=== PATIENT | male | born 1950 | race Caucasian/White ===

== ENCOUNTER → 2016-04-20 | Outpatient (CLI) | payer MEDICARE, OTHER ==
--- NOTE | 2016-04-20 08:18 | RAD ---
EXAM DESCRIPTION: XR SHOULDER 2 OR MORE VIEWS CLINICAL HISTORY: SHOULDER PAIN COMPARISON: None. IMPRESSION: Two views of the left shoulder show no evidence of acute fracture, focal bone destruction, or joint dislocation. There is severe narrowing of the glenohumeral joint with sclerotic changes at the articular surface. Circumferential osteophyte of the glenoid is seen with moderate inferior medial osteophyte of the humeral head. These findings are consistent with severe advanced glenohumeral joint osteoarthritic changes. There also appears to be some elevation of the humeral head raising suspicion for chronic rotator cuff tear. Mild osteoarthritic changes of the left acromioclavicular joint are seen. Electronically signed by: Tavo Shane MD 04/20/2016 08:17
== END ==
LOC: RAD 07:51
PROVIDERS: ATTEND Orthopaedic Surgery
DX: M19.012 Primary osteoarthritis, left shoulder (principal)

== ENCOUNTER → 2016-08-04 | Outpatient (CLI) | payer MEDICARE, OTHER ==
--- NOTE | 2016-08-04 17:06 | MRI ---
EXAM DESCRIPTION: Lumbar Spine w/o Contrast CLINICAL HISTORY: 66 years,Male,STENOSIS COMPARISON: None TECHNIQUE: MRI before multiple sequences of the lumbar spine. FINDINGS: The vertebral bodies demonstrate hemangiomas and L3 measuring 1.5 cm in size. And multiple smaller hemangiomas in almost all vertebral bodies. And Modic type I endplate changes seen at T12-L1.. Spinal cord normal signal and morphology. Tip of the conus is at L1. Surrounding soft tissues unremarkable. L5-S1: Disk height is moderately loss in the left aspect. There is minimal annular disc bulge. The facettes moderate bilateral hypertrophy. There is no spinal canal stenosis. There is severe right mild left neural foraminal stenosis. L4-5: Disk height is moderate to severe loss at disc height worse on the right. There is moderate annular disc bulge but a more focal protrusion of 6 mm on the right paracentral aspect.. The facettes severely hypertrophic bilaterally and subluxed on the right. There is thickening 11 flavum which is moderate. And moderate spinal canal stenosis worse on the right lateral recess impinging upon the transversing L5 nerve root. There is markedly severe left and right neural foraminal stenosis. L3-4: Disk height is moderately loss disc height worse on the right. There is moderate annular disc bulge. The facettes severely hypertrophic with severe thickening of the ligamentum flavum over 6 mm thickness. There is severe spinal canal stenosis with only 3 mm AP central distance. There is markedly severe right and severe left foraminal stenosis. L2-3: Disk height is moderate loss of disc height. There is moderate annular disc bulge up to 6 mm in thickness. The facettes moderate to severe facets facet hypertrophy with mild thickening of the ligamentum flavum . There is mild right lateral recess stenosis impinging upon the transversing L3 nerve root. There is severe right moderate left neural foraminal stenosis. L1-2: Disk height is moderate loss disc height worse on the left. There is mild to moderate annular disc bulge. The facettes moderate to severe facet hypertrophy. There is no spinal canal stenosis. There is moderate left and right neural foraminal stenosis. IMPRESSION: All levels demonstrate neural foraminal stenosis which is worse and severe on the right at L to three and L3-4 and on the left at L3-4. This due to loss disc height disc bulges and facet arthropathy which is mostly severe facet disease. Multiple levels of spinal canal stenosis at L4-5, severe at L3-4 due to in addition to severe thickening of the ligamentum flavum and mild on the right at L2-3. There is dextro upper lumbar spine scoliosis distal lower due to uneven loss of disc height. Electronically signed by: Vamsi Singleton MD 08/04/2016 5:06 PM CDT
== END ==
LOC: MRI 06:38
PROVIDERS: ATTEND Family Medicine
DX: M48.06 Spinal stenosis, lumbar region (principal)

== ENCOUNTER → 2016-09-07 | Outpatient (CLI) | payer MEDICARE, OTHER | END | disposition home or self-care (01) | LOC: GMAJ 10:15 | PROVIDERS: ATTEND Family Medicine | DX: Z12.5 Encounter for screening for malignant neoplasm of prostate (principal) ==

== ENCOUNTER → 2016-10-27 | Outpatient (CLI) | payer MEDICARE, OTHER ==
--- NOTE | 2016-10-27 14:06 | MAM ---
EXAM DESCRIPTION: 3D Diagnostic, Bilateral CLINICAL HISTORY: 66 yearsMaleGYNECOMASTIA, NEOPLASM OF UNCERTAIN BEHAVIOR LEFT BREAST. Lump on left breast. Tender.. COMPARISON: Baseline study. No prior reports available. TECHNIQUE: Bilateral CC and MLO projection full-field images, 3-D tomosynthesis CC only, digital mammographic technique. Also bilateral synthesized CC/ MLO full-field images. CAD not utilized. Marker placed on palpable left breast lesion. FINDINGS: The breast parenchymal density pattern is: Almost entirely fatty. No skin thickening or nipple retraction focal asymmetry in the anterior third of the left breast abutting the posterior nipple line measuring approximately 1.3 cm in diameter. Focal asymmetry in the similar location on the right breast, smaller region. No associated microcalcifications. No focal, stellate mass or density, , and no suspicious microcalcifications bilaterally. ULTRASOUND: Scanning bilateral retroareolar breast tissue. Oval-shaped hypoechoic tissue in the retroareolar left breast with macrolobulation. 1.4 x 1.3 cm. Parallel orientation. Mixed posterior features. Minimal peripheral vascularity. Similar tissue less well-defined retroareolar right breast approximately 8 mm greatest diameter. Parallel orientation and mixed posterior acoustic features. Bilateral findings consistent with gynecomastia. IMPRESSION: BI-RADS CATEGORY: 3 - PROBABLY BENIGN FINDING - Short Interval Follow-Up Suggested, left breast FOLLOW-UP: Short-interval (6-month) follow-up mammography and consider surveillance ultrasound. Written communication explaining the results and follow-up will be mailed to the patient and referring care provider. Electronically signed by: Juanjose Ortega MD 10/27/2016 2:04 PM CDT Workstation: [id number]
--- NOTE | 2016-10-27 14:08 | US ---
EXAM DESCRIPTION: Breast,Left CLINICAL HISTORY: 66 yearsMaleGYNECOMASTIA COMPARISON: Diagnostic digital mammogram of the bilateral breasts on this visit. TECHNIQUE: Transcutaneous scanning of the bilateral retroareolar breast utilizing two-dimensional and Doppler modes. Scanning performed by the basket maker . FINDINGS: Scanning bilateral retroareolar breast tissue. Oval-shaped hypoechoic tissue in the retroareolar left breast with macrolobulation. 1.4 x 1.3 cm. Parallel orientation. Mixed posterior features. Minimal peripheral vascularity. Similar tissue less well-defined retroareolar right breast approximately 8 mm greatest diameter. Parallel orientation and mixed posterior acoustic features. Bilateral findings consistent with gynecomastia. IMPRESSION: BI-RADS Category 3: Probably benign findings. These refer to bilateral digital 3-D tomosynthesis diagnostic mammographic examination on this visit. The findings and the follow-up plan were reviewed with the patient after the examination. Electronically signed by: Juanjose Ortega MD 10/27/2016 2:06 PM CDT Workstation: [id number]
== END ==
LOC: MAMMO 12:33
PROVIDERS: ATTEND Family Medicine
DX: N63 Unspecified lump in breast (principal)
CPT/HCPCS: 76641; G0279

== ENCOUNTER → 2016-12-01 | Outpatient (CLI) | payer MEDICARE, OTHER ==
--- NOTE | 2016-12-01 08:57 | OP ---
DATE OF PROCEDURE: 12/01/16 PREOPERATIVE DIAGNOSIS: 1. Tender left breast mass. POSTOPERATIVE DIAGNOSIS: 1. Tender left breast mass. PROCEDURE: 1. Sonographically needle core biopsy, left breast mass. SURGEON: Riaz Eddy MD. ANESTHESIA: Local infiltration of 1% lidocaine. INDICATION: The patient is a 66-year-old male who presented to his primary care physician with a tender left breast mass. Ultrasound and mammography are consistent with gynecomastia. The patient is in preparation of significant back surgery and he is concerned even though he has been assured that this is most likely gynecomastia. The patient wishes to proceed with a biopsy. After the risks, benefits and alternatives were discussed, he was brought to the Ultrasound Suite today for a sonographically guided needle core biopsy. FINDINGS: The ultrasound device revealed the biopsy needle within the lesion and 4 cores were taken. Pathology is pending. PROCEDURE: The patient was brought to the Ultrasound Suite and placed in the supine position. The breast was inspected and the lesion was identified. The lateral left breast was prepped with Betadine and draped. Local infiltration of anesthesia was obtained with 1% lidocaine. A 25-gauge needle was introduced to the lesion. A stab wound was then made with a 15 blade and the biopsy needle was introduced under ultrasound guidance. Four passes were taken with one of the passes at 90 degrees. The ultrasound also reveals the within the lesion. The patient tolerated the procedure well. Hemostasis was obtained with pressure and a single suture of 4-0 Nylon. A sterile pressure dressing was obtained. Estimated blood loss was 10 mL. The patient is discharged home with followup for next Tuesday. The specimen was sent for pathologic evaluation. #[id number] [facility]
--- NOTE | 2016-12-02 12:49 | US ---
EXAM DESCRIPTION: Biopsy/Needle Guidance CLINICAL HISTORY: 66 yearsMaleLEFT BREAST MASS COMPARISON: Diagnostic ultrasound of the left breast on 10/27/2016. TECHNIQUE: The procedure was performed by Dr. Eddy. Repeat ultrasound localized the lesion at the retroareolar position of the left breast. Sterile preparation. Sterile ultrasound guidance. FINDINGS: Orthogonal images demonstrate the echogenic needle within the hypoechoic region in the retroareolar left breast. IMPRESSION: Successful, ultrasound-guided fine-needle core biopsy of the retroareolar mass in the left breast. Pathology examination at remote facility, results pending. Electronically signed by: Juanjose Ortega MD 12/02/2016 12:48 PM CDT Workstation: [id number]
== END | disposition home or self-care (01) ==
LOC: US 07:41
PROVIDERS: ATTEND Surgery
PROC: 0HBU3ZX Excision of Left Breast, Percutaneous Approach, Diagnostic (ICD-10-PCS; principal; 2016-12-01)
PROC: BH41ZZZ Ultrasonography of Left Breast (ICD-10-PCS; 2016-12-01)
DX: N63 Unspecified lump in breast (principal)

== ENCOUNTER → 2017-05-04 | Outpatient (CLI) | payer MEDICARE, OTHER ==
--- NOTE | 2017-05-04 16:26 | MAM ---
EXAM DESCRIPTION: 3D Diagnostic, Left: Digital Mammography CLINICAL HISTORY: 66 yearsMale6 month follow up . Patient states he no longer feels a mass behind the left nipple.. COMPARISON: 3-D diagnostic bilateral mammography 10/27/2016. Targeted left breast ultrasound on the same visit. Targeted left breast ultrasound following this examination. Reports from prior examinations also reviewed. TECHNIQUE: Left breast CC LM MLO projection full-field images, 3-D tomosynthesis digital mammographic technique. Also left breast synthesized CC MLO LM full-field images. CAD not utilized. FINDINGS: The breast parenchymal density pattern is: Almost entirely fatty. No skin thickening or nipple retraction focal asymmetry in the retroareolar left nipple compared to the right. Denser than the surrounding breast tissue. Not palpable. No mass effect or abnormal calcifications. This can be related to prior biopsy. ULTRASOUND: Scanning behind the left nipple. Hypoechoic ill-defined tissue with no mass border. No discrete mass or cyst. No skin changes. No parenchymal edema or calcification. Normal Doppler signature. Consistent with gynecomastia. IMPRESSION: BI-RADS CATEGORY: 2 - BENIGN FINDINGS. FOLLOW UP: Diagnostic digital screening, as needed. The FINDINGS and the follow-up plan were reviewed in person with the patient after the examination. Written communication explaining the IMPRESSION and follow-up will be mailed to the patient and referring care provider. Electronically signed by: Juanjose Ortega MD 05/04/2017 4:25 PM [employer]
--- NOTE | 2017-05-04 16:28 | US ---
EXAM DESCRIPTION: Breast,Left: Ultrasound CLINICAL HISTORY: 66 yearsMale6 MONTH FOLLOW UP NEG BX. Patient no longer feels a mass behind the left nipple. COMPARISON: Digital 3-D tomosynthesis diagnostic left breast same visit. TECHNIQUE: Transcutaneous scanning of the retroareolar left breast utilizing two-dimensional and Doppler modes. Scanning performed by the systems auditor and Dr. Ortega. FINDINGS: Scanning behind the left nipple. Hypoechoic ill-defined tissue with no mass border. No discrete mass or cyst. No skin changes. No parenchymal edema or calcification. Normal Doppler signature. Consistent with gynecomastia. IMPRESSION: 1. Bi-Rads Category 2: Benign. 2. Please refer to digital diagnostic 3-D tomosynthesis examination the left breast today and report. The FINDINGS and the follow-up plan were reviewed in person with the patient after the examination. Written communication explaining the IMPRESSION and follow-up will be mailed to the patient and referring care provider. Electronically signed by: Juanjose Ortega MD 05/04/2017 4:27 PM COMPOTYPE OPERATOR
== END ==
LOC: MAMMO 12:48
PROVIDERS: ATTEND Surgery
DX: N62 Hypertrophy of breast (principal)
CPT/HCPCS: 76641; 77065; G0279

== ENCOUNTER → 2017-07-05 | Outpatient (CLI) | payer MEDICARE, OTHER | LOC: GMAJ 14:35 | PROVIDERS: ATTEND Family Medicine | DX: N40.0 Benign prostatic hyperplasia without lower urinary tract symptoms (principal) ==

== ENCOUNTER 2017-10-24 05:30 | Day surgery (SDC) | payer MEDICARE, OTHER ==
[2017-10-24] MEDS ORDERED: TROP 1%/CYCLOPEN 1%/PHENYL 2% DROPS ONE (05:54)
[2017-10-24] MEDS ORDERED: PROPARACAINE 0.5% OPHTH SOL 15 ML BTTL ONE (05:54)
[2017-10-24] MEDS ORDERED: MIDAZOLAM INJ 2 MG/2 ML VIAL ONE ×2 (07:11→09:45)
[2017-10-24] MEDS ORDERED: PROPARACAINE 0.5% OPHTH SOL 15 ML BTTL LEFT_EYE ONE (09:40)
[2017-10-24] MEDS ORDERED: DEXAMETHASONE 0.1% OPHTH SOL 1 DROP LEFT_EYE ONE ×2 (09:46→10:03)
[2017-10-24] MEDS ORDERED: LIDOCAINE 1% PF 2 ML AMP INJ ONE ×2 (09:46→09:54)
[2017-10-24] MEDS ORDERED: TOBRAMYCIN SULF 0.3 % OPHT SOL 1 DROP LEFT_EYE ONE ×2 (09:47→10:03)
[2017-10-24] MEDS ORDERED: BRIMONIDINE 0.2% OPHTH DROPS LEFT_EYE ONE ×2 (09:47→10:03)
== END 2017-10-24 10:36 | disposition home or self-care (01) ==
LOC: AMB 05:30
PROVIDERS: ATTEND Ophthalmology
DX: H25.12 Age-related nuclear cataract, left eye (principal); I10 Essential (primary) hypertension; K21.9 Gastro-esophageal reflux disease without esophagitis; E66.9 Obesity, unspecified; Z87.891 Personal history of nicotine dependence; Z88.8 Allergy status to other drugs, medicaments and biological substances; Z79.899 Other long term (current) drug therapy
CPT/HCPCS: 00142; 66984; J2250

== ENCOUNTER 2017-11-07 06:02 | Day surgery (SDC) | payer MEDICARE, OTHER ==
[~2017-11-07 06:02] MED LIST: PROPARACAINE 0.5% OPHTH SOL 15 ML BTTL ONE; TROP 1%/CYCLOPEN 1%/PHENYL 2% DROPS ONE
[2017-11-07] MEDS ORDERED: MIDAZOLAM INJ 2 MG/2 ML VIAL ONE (07:05)
[2017-11-07] MEDS ORDERED: LIDOCAINE 1% MPF 5 ML VIAL INJ ONE (07:44)
[2017-11-07] MEDS ORDERED: DEXAMETHASONE 0.1% OPHTH SOL 1 DROP RIGHT_EYE ONE ×2 (07:50→07:59)
[2017-11-07] MEDS ORDERED: TOBRAMYCIN SULF 0.3 % OPHT SOL 1 DROP RIGHT_EYE ONE ×2 (07:50→07:59)
[2017-11-07] MEDS ORDERED: BRIMONIDINE 0.2% OPHTH DROPS RIGHT_EYE ONE ×2 (07:51→07:59)
== END 2017-11-07 08:32 | disposition home or self-care (01) ==
LOC: AMB 06:02
PROVIDERS: ATTEND Ophthalmology
DX: H25.11 Age-related nuclear cataract, right eye (principal); I10 Essential (primary) hypertension; K21.9 Gastro-esophageal reflux disease without esophagitis; Z88.8 Allergy status to other drugs, medicaments and biological substances; Z79.899 Other long term (current) drug therapy
CPT/HCPCS: 66984; J2250

== ENCOUNTER → 2017-12-28 | Outpatient (CLI) | payer MEDICARE, OTHER ==
--- NOTE | 2017-12-28 10:57 | MRI ---
MRI left hand without contrast INDICATION: Fourth and fifth metacarpal pain x3 months uncertain injury swelling TECHNIQUE: Noncontrast MR imaging left hand FINDINGS: There is a marker indicating the area of symptomatology over the fifth metacarpal. There is a small metallic artifact at the skin or just under the skin in the palm axial series 301 image 34 correlate with prior injury in this area. There is diffuse edema/soft tissue swelling in the area of symptoms at the fifth MCP joint. There is diffuse inflammation surrounding this joint with mild marrow edema and degenerative change. There is also evidence of mild synovitis. There is question of mineralization within the synovium correlate with radiographs. This is a nonspecific intra-articular and periarticular inflammation. This may be traumatic or an inflammatory arthritic process. Rheumatologic assessment and labs would be useful. No advanced bone destruction this time. No disruption of the extensor or flexor mechanism There is scattered osteoarthritic change involving the second CMC joint and second MCP joint. There is cystic change or chondroid lesion in the neck of the distal second metacarpal nonaggressive in appearance. There is also surgical change and arthrosis of the basal joint of the thumb partially visualized. There is mild extensor tenosynovitis across the fifth MCP joint in the area of symptoms and inflammation. IMPRESSION: Nonspecific intra-articular and periarticular inflammation fifth MCP joint and extensor compartment see above discussion without advanced bone destruction fracture or dislocation Degenerative/arthritic change basal joint of thumb with surgical changes Similar changes second CMC joint and second MCP joint Cystic or chondroid lesion distal second metacarpal Electronically signed by: Mu Aranda MD 12/28/2017 10:56 AM CDT
== END ==
LOC: MRI 07:03
PROVIDERS: ATTEND Family Medicine
DX: M19.042 Primary osteoarthritis, left hand (principal); M84.84 Other disorders of continuity of bone, hand; M79.642 Pain in left hand

== ENCOUNTER → 2018-01-30 | Outpatient (CLI) | payer MEDICARE, OTHER | LOC: GMAJ 12:00 | PROVIDERS: ATTEND Family Medicine | DX: N40.1 Benign prostatic hyperplasia with lower urinary tract symptoms (principal) ==

== ENCOUNTER → 2018-03-14 | Outpatient (CLI) | payer MEDICARE, OTHER ==
--- NOTE | 2018-03-14 15:51 | MRI ---
EXAM DESCRIPTION: Cervical Spine: MRI. CLINICAL HISTORY: 67 years Male M54.12 COMPARISON: None. TECHNIQUE: Multiplanar, high-field MRI, multiple sequences, non-contrast Cervical spine. FINDINGS: C2-3: Uncinate process on the left. Arthrosis with facet with moderate neural foraminal narrowing. Facet osteophyte encroaches on the left lateral canal. Right foramen and remainder of canal are patent. C3-4: Disc desiccation and 2 mm grade 1 anterolisthesis. Minimal hypertrophy of the posterior flavum ligaments. 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 Bilateral uncinate spurs. Mild right neural foraminal narrowing and left neural foraminal stenosis. Mild canal narrowing. C4-5: Mild disc desiccation with anterior bulging. 2 mm grade 1 anterolisthesis. Posterior bilateral flavum ligament hypertrophy with borderline canal stenosis. Bilateral uncinate spurs. Bilateral facet arthrosis more on the left. Bilateral mild to moderate neural foraminal narrowing. C5-6: Significant disc space loss. Anterior bulging and endplate spurs. Posterior disc osteophyte broad-based bulge abutting the thecal sac. Bilateral uncinate spurs. Left mild facet arthrosis. Moderate bilateral neural foraminal narrowing. C6-7: Disc space narrowing and disc desiccation. 2 mm grade 1 retrolisthesis. Posterior 3 mm disc bulge abutting the cord. Bilateral uncinate spurs. Moderate right neural foraminal narrowing and mild left neural foraminal narrowing. Posterior flavum ligament hypertrophy. Borderline mild canal stenosis. Bilateral facets are negative. C7-T1: Disc space loss minimal anterior bulge. Posterior broad-based bulge abutting the cord. Grade 1 anterolisthesis 2 mm. Bilateral moderate neural foraminal narrowing. Mild left facet arthrosis. Normal signal in the T1-2 disc with no bulging. Disc space preserved. Canal and neural foramina are patent. Facets are negative. Spinal alignment kyphosis C3-C6. No cord compression or cord edema. Atlantoaxial joint moderate hypertrophy posterior almost abutting the proximal cord with moderate narrowing.. Base of the cerebellar tonsils is at the level of the foramen magnum. Paravertebral soft tissues are unremarkable. Vertebral bodies are not compressed at any level. Normal marrow signal in the remaining vertebral bodies and the posterior elements. IMPRESSION: 1. 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 Left neural foraminal stenosis. Correlate for left C4 radiculopathy. Grade 1 anterolisthesis and disc desiccation. 2. C4-5 grade 1 anterolisthesis. Bilateral mild to moderate neural foraminal narrowing. Borderline mild central canal stenosis. 3. Borderline mild central canal stenosis C6-7. Posterior 3 mm disc bulge. Grade 1 retrolisthesis. Electronically signed by: Juanjose Ortega MD 03/14/2018 3:50 PM [facility]
--- NOTE | 2018-03-15 13:00 | CT ---
Procedure: CT ABDOMEN RUNOFF ANGIO WITH AND WITHOUT BILATERAL Exam Date: 03/14/2018 Ordering Provider: ARTIE WALLER Clinical Indication: PVD Comparison: None Technique: Using a helical scanner, sequential axial imaging of the abdominal aorta, common and external iliac arteries bilaterally, and lower extremity arteries bilaterally to each foot was obtained following the administration of intravenous contrast. At an independent workstation 3-D reconstructions of the abdominal aorta, iliac systems bilaterally, and lower extremity arteries bilaterally was obtained. This exam was performed according to our departmental dose optimization program which includes use of automated exposure control, adjustment of the mA and/or kV according to patient size and/or use of iterative reconstruction technique. Findings: Review of conventional CT imaging was obtained. No acute findings in the organs of the abdomen or pelvis. Fat-containing inguinal hernias. Colonic diverticulosis without evidence of diverticulitis. Calcified atherosclerotic plaque in the aorta and its branch vessels. No abdominal aortic aneurysm or dissection. The celiac and SMA origins are intact. There are 2 right renal arteries which are patent. There is a single left renal artery without significant stenosis. The right common iliac artery is patent without significant stenosis The right external iliac artery is patent without significant stenosis. The left common iliac artery is patent without significant stenosis. The left external iliac artery is patent without significant stenosis. Right lower extremity: The common femoral artery is patent without significant stenosis. The profunda femoris artery is patent without significant stenosis. The superficial femoral artery is patent without significant stenosis. The popliteal artery is patent without significant stenosis. There is high-grade stenosis in the distal anterior tibial artery. The peroneal artery is patent to the ankle. High-grade stenosis of the proximal posterior tibial artery. Left lower extremity: The common femoral artery is patent without significant stenosis. The profunda femoris artery is patent without significant stenosis. The superficial femoral artery is patent without significant stenosis. Approximately 75% stenosis of the popliteal artery. There is high-grade stenosis in the distal anterior tibial artery. The peroneal artery is patent to the ankle. Multifocal high-grade stenosis in the posterior tibial artery. Impression: 1. High-grade stenosis in the anterior tibial artery bilaterally. 2. High-grade stenosis in the posterior tibial artery bilaterally. 3. Approximately 75% stenosis in the left popliteal artery. Electronically signed by: Rios More MD 03/15/2018 12:59 PM [facility]
== END ==
LOC: CT 09:30
PROVIDERS: ATTEND Psychiatry & Neurology Neurology
DX: M54.12 Radiculopathy, cervical region (principal); I73.9 Peripheral vascular disease, unspecified

== ENCOUNTER → 2019-04-16 | Outpatient (CLI) | payer MEDICARE, OTHER | LOC: GMAJ 10:36 | PROVIDERS: ATTEND Family Medicine | DX: Z12.5 Encounter for screening for malignant neoplasm of prostate (principal); E78.00 Pure hypercholesterolemia, unspecified; I10 Essential (primary) hypertension ==

== ENCOUNTER → 2019-05-22 | Outpatient (CLI) | payer MEDICARE, OTHER ==
--- NOTE | 2019-05-22 16:45 | MRI ---
EXAM DESCRIPTION: Brain w/o Contrast: MRI. CLINICAL HISTORY: DIZZINESS AND GIDDINESS COMPARISON: None. TECHNIQUE: Multiplanar, high-field MRI unit, multiple diffusion sequences, multiple conventional sequences without contrast. FINDINGS: Bilateral small scattered foci of hyperintense FLAIR and T2-weighted signal in the periventricular white matter abutting the frontal horns and also in the subcortical white matter of the frontal parietal and occipital lobes. Relatively symmetric with largest lesions posterior left parietal lobe and anterior parasagittal right occipital lobe. No hemorrhage, no cerebral edema, no mass-effect. Normal signal in the bilateral basal ganglia. Normal signal in the brainstem and cerebellar hemispheres. No hemorrhage, no parenchymal edema, no mass-effect. Concordance of the diffusion and non-diffusion sequences with no diffusion restriction. Cortical sulci, ventricles, and other CSF spaces, and the subdural spaces are normally configured for patients age. No effacement or displacement. No midline shift. No extra-axial hemorrhage. Normal flow signal void in the major vessels of the [place], and the venous sinuses. IACs are symmetric bilaterally. Normal signal in the bilateral mastoid air cells. No mass effect in the bilateral cerebellopontine angles. Pituitary gland occupies less than half of the sella. Base of the cerebellar tonsils is at the level of the foramen magnum. Mucoperiosteal thickening in the. Paranasal sinuses. The bony calvarium is intact. IMPRESSION: 1. Signal changes in the periventricular white matter and subcortical white matter in the cerebral hemispheres most likely related to aging and/or cerebral microvascular disease. This can also be related to migraine headaches. Less likely to represent demyelinating process or vasculitis. No hemorrhage, intra-axial or extra-axial. No mass effect, no midline shift 2. Normal noncontrast MRI diffusion study with no evidence of significant ischemia, or acute or subacute infarction. 3. Mild chronic paranasal sinusitis. Electronically signed by: Juanjose Ortega MD 05/22/2019 4:44 PM SALVATIONIST
== END ==
LOC: MRI 09:00
PROVIDERS: ATTEND Family Medicine
DX: R90.82 White matter disease, unspecified (principal); J32.9 Chronic sinusitis, unspecified

== ENCOUNTER → 2019-08-09 | Outpatient (CLI) | payer MEDICARE, OTHER | LOC: GMAJ 11:44 | PROVIDERS: ATTEND Family Medicine | DX: N40.0 Benign prostatic hyperplasia without lower urinary tract symptoms (principal); I10 Essential (primary) hypertension; E78.2 Mixed hyperlipidemia ==